=== PATIENT | male | born 1945 | race Caucasian/White ===

== ENCOUNTER 2019-06-29 05:52 | Day surgery (SDC) | payer OTHER ==
[2019-06-28 14:03] VITALS: BMI 31.1
[2019-06-29 06:38] LABS: Hemoglobin 16.2 g/dL (14.0-18.0); Mean Corpuscular HGB CONC 33.2 g/dL (32.0-36.0); Mean Corpuscular Hemoglobin 31.2 pg (27.0-31.0); Mean Corpuscular Volume 93.9 fL (78.0-98.0); Mean Platelet Volume 8.4 fL (7.4-10.4); Platelet Count 147 thou/uL (130-400); RBC Distribution Width 12.1 % (11.5-14.5); Red Blood Cell (RBC) Count 5.19 mill/uL (4.70-6.10); White Blood Cell (WBC) Count 4.8 thou/uL (4.8-10.8)
[2019-06-29 06:39] LABS: INR-International Normal Ratio 1.1; Prothrombin Time 14.1 SEC (12.0-14.7)
[2019-06-29] MEDS ORDERED: Thrombin 5000 UNITS/5 ML VIAL ONE (06:41)
[2019-06-29 06:53] LABS: Anion Gap 14 mmol/L (10-20); BUN (Urea Nitrogen) 24 mg/dL (8.4-25.7); Calc. Creatinine Clearance 53 mL/min (70-130); Calcium 9.6 mg/dL (7.8-10.44); Carbon Dioxide 25 mmol/L (23-31); Chloride 105 mmol/L (98-107); Estimated GFR-MDRD 41; Glucose 98 mg/dL (83-110); Potassium 4.6 mmol/L (3.5-5.1); Sodium 139 mmol/L (136-145)
[2019-06-29] MEDS ORDERED: Fentanyl 100 MCG/2 ML VIAL ONE (06:59)
[2019-06-29] MEDS ORDERED: Phenylephrine 10 MG/ML VIAL ONE (08:44)
[2019-06-29] MEDS ORDERED: PROPOFOL 200 MG/20 ML VIAL ONE (09:20)
[2019-06-29] MEDS ORDERED: Rocuronium Bromide 10 MG/ML (10ML VIAL) ONE (09:20)
[2019-06-29] MEDS ORDERED: EPHEDRINE 25 MG/5 ML SYRINGE ONE (09:20)
[2019-06-29] MEDS ORDERED: Ondansetron PF 4 MG/2 ML Vial ONE (09:20)
[2019-06-29] MEDS ORDERED: Dexamethasone 20 MG/5 ML VIAL ONE (09:20)
[2019-06-29] MEDS ORDERED: PHENYLEPHRINE-NS 100 MCG/ML 10 ML SYRINGE ONE (09:20)
--- NOTE | 2019-06-29 10:06 | PRG ---
DATE OF SERVICE: 06/29/2019 SUBJECTIVE: I spoke with Mr. Mcfarland on the phone. He has been having increasing leg weakness and difficulties with his knees buckling, worse again over the last 2 months now with low back and bilateral leg pain. It has gotten to the point where he is concerned about his ability to walk. As such, I reviewed his new MRI. 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 At the L4-L5 segment on the right side, he has a disk extrusion that is more in the lateral region compressing the exiting left L4 nerve root and I suspect his bilateral L4 and traversing left L5 compression are the culprit of his symptoms, in particular his bilateral L4 radiculopathy. I have let him know if he only had low back and leg pain, ideally we would wait for this to be elective, although I am concerned with his recent risk of falls as he is on aspirin as well. I have discussed this with him and I have recommended that this be done before the 30-day period and he was in agreement. The surgery that I have recommended initially before talking with the patient was bilateral L3-L4 revision hemilaminotomies and foraminotomies with right L3-L4 revision diskectomy with left L4-L5 revision hemilaminotomy and foraminotomy. However, in talking with the patient, I am concerned about the complete traverse of his left L4 nerve root, and as such, I will add to this a left L4-L5 trans facet diskectomy to maximize the exiting left L4 nerve root in its foramen. The goals, indications, risks, alternatives, and complications of all of this were discussed in detail with the patient and he wishes to proceed. Job ID: [id number]
[2019-06-29] MEDS ORDERED: Acetaminophen 325 MG TAB PO PRN (10:19)
[2019-06-29] MEDS ORDERED: Bisacodyl 10 MG SUPP PR PRN (10:19)
[2019-06-29] MEDS ORDERED: tiZANidine HCl 4 MG TAB PO PRN (10:19)
[2019-06-29] MEDS ORDERED: Milk Of Magnesia 30 ML UDCUP PO PRN (10:19)
[2019-06-29] MEDS ORDERED: HYDROcodone/Acetaminophen 7.5/325 mg Tablet PO PRN (10:19)
[2019-06-29] MEDS ORDERED: traMADol HCl 50 MG TAB PO PRN (10:19)
[2019-06-29] MEDS ORDERED: Mag-Al 1200 mg/1200 mg/30 ML UDCUP PO PRN (10:19)
[2019-06-29] MEDS ORDERED: Ondansetron PF 4 MG/2 ML Vial IVP PRN (10:19)
[2019-06-29] MEDS ORDERED: Morphine 2 MG/ML SYRINGE SLOW IVP PRN (10:19)
[2019-06-29] MEDS ORDERED: Fleet Enema 133 ML BOT PR PRN (10:19)
[2019-06-29] MEDS ORDERED: Acetaminophen/Codeine 30-300mg Tablet PO PRN (10:19)
[2019-06-29] MEDS ORDERED: Nitroglycerin 0.4 MG TAB (25 Tab Bottle) SL PRN (10:44)
[2019-06-29] MEDS: Sodium Chloride 0.9% 1,000 ML IV SCH ×2 (12:01→23:21)
--- NOTE | 2019-06-29 12:22 | OP ---
DATE OF PROCEDURE: 06/29/2019 INDICATIONS FOR PROCEDURE: This is considered as an urgent case and not elective as the patient in addition to his longstanding low back and leg pain is starting to have leg weakness and his legs were giving out when he ambulated. I recommended because of that, that we proceed in a nonelective fashion. I discussed with him the coronavirus acquisition risk. PREPROCEDURE DIAGNOSES: Low back and left greater than right leg pain with leg weakness and buckling of the legs with lumbar radiculopathy. POSTPROCEDURE DIAGNOSES: Low back and left greater than right leg pain with leg weakness and buckling of the legs with lumbar radiculopathy. PROCEDURES PERFORMED: 1. Bilateral revision L3-L4 hemilaminotomy, foraminotomy with right L3-L4 diskectomy, modifier 50 should be added to this as this is a bilateral procedure. 2. Left L4-L5 revision hemilaminotomy, foraminotomy for decompression of left L5 nerve root. 3. Use of operative microscope for microdissection. 4. Left L4-L5 trans-facet diskectomy for decompression of the exiting left L4 nerve root and removal foraminal disk extrusion. SERVICE CENTER COORDINATOR: Earline Ortega PA-C DESCRIPTION OF PROCEDURE: After informed consent was obtained from the patient, the patient was brought to the OR. Proper patient, pause, and identification were carried out. He was placed under excellent general endotracheal anesthesia and positioned prone on the OR table. All appropriate points were padded. A linear annabel was identified from his prior surgery and this region was sterilely cleansed, prepared and draped. Proper patient, pause, and identification were carried out. The wound was then opened with a combination of sharp, monopolar, and blunt dissection. We proceeded to identify the bilateral facet complexes and what was left of the lamina at L3-L4 and L4-L5 bilaterally. Localization film confirmed our area of interest. We then performed a bilateral L3-L4 revision hemilaminotomy and foraminotomies and left L4-L5 revision hemilaminotomy, foraminotomy. We then brought the microscope in and a trans-facet diskectomy at the left L4-L5 segment was performed and skeletonization of the left L4 nerve root via left L4-L5 trans-facet was performed and a left L4-L5 trans-facet diskectomy performed with decompression of the exiting left L4 nerve root. We then turned our attention to the standard diskectomy on the right side of the L3-L4 segment. In a paracentral fashion, the disk material was removed to decompress the traversing right L4 nerve root. Copious irrigation occurred throughout as we maximized hemostasis. The wound was copiously irrigated and closed in anatomic layers following sprinkling of vancomycin powder. There was no spinal fluid. Job ID: [id number]
--- NOTE | 2019-06-29 16:11 | EKG ---
Test Reason : PREOP Blood Pressure : / mmHG Vent. Rate : 051 BPM Atrial Rate : 051 BPM P-R Int : 274 ms QRS Dur : 100 ms QT Int : 470 ms P-R-T Axes : 067 -01 018 degrees QTc Int : 433 ms Sinus bradycardia with 1st degree A-V block Non-specific intra-ventricular conduction delay Inferior infarct , age undetermined Abnormal ECG Confirmed by CATRACHITA HOLBROOK ([id number]) on 06/29/2019 4:11:32 PM Referred By: JOVANNY Confirmed By:CATRACHITA HOLBROOK
[2019-06-29] MEDS: CEFAZOLIN 2 GM in Premix Bag 1 BAG IVPB SCH ×2 (17:04→23:04)
[2019-06-29] MEDS: metFORMIN 500 MG TAB PO SCH (17:12)
[2019-06-29] MEDS: glipiZIDE 10 MG TAB PO SCH (17:17)
[2019-06-29] MEDS: Gabapentin 300 MG CAP PO SCH (20:15)
[2019-06-29] MEDS: HumaLOG 300 UNITS/3 ML VIAL SC SCH (20:57)
[2019-06-29] MEDS ORDERED: Atorvastatin Calcium 40 MG TAB PO SCH (21:00)
[2019-06-29] MEDS ORDERED: Ubidecarenone 50 MG CAP PO SCH (21:00)
[2019-06-29] MEDS ORDERED: Allopurinol 100 MG TAB PO SCH (21:00)
[2019-06-30] MEDS: HumaLOG 300 UNITS/3 ML VIAL SC SCH (06:40)
[2019-06-30] MEDS: glipiZIDE 10 MG TAB PO SCH (06:41)
[2019-06-30] MEDS ORDERED: Pioglitazone HCl 15 MG TAB PO SCH (09:00)
[2019-06-30] MEDS: metFORMIN 500 MG TAB PO SCH (09:00)
[2019-06-30] MEDS: Gabapentin 300 MG CAP PO SCH (09:00)
[2019-06-30] MEDS ORDERED: Multivitamin W/ Minerals 1 TAB PO SCH (09:00)
[2019-06-30] MEDS ORDERED: Lisinopril 20 MG TAB PO SCH (09:00)
[2019-06-30] MEDS ORDERED: Isosorbide Mononitrate (ER) 30 MG TAB PO SCH (09:00)
[2019-06-30] MEDS ORDERED: Magnesium Oxide 400 MG TAB PO SCH (09:00)
--- NOTE | 2019-06-30 10:26 | PRG ---
DATE OF SERVICE: 06/30/2019 Mr. Mcfarland is postoperative day 1 from lumbar diskectomy, revision continued buckling of the knees, leg pain and leg weakness. He states he feels significantly better with resolution in his leg pain. He is ambulated this morning with a rolling walker and states he even feels as if he does not need the walker and that his legs have not buckled since before surgery. He is very pleased. He has had some sanguinous ooze from his wound, although nothing active this morning. We did operate on him with aspirin in his system given his history of ischemic cardiomyopathy and prior bypass surgery, and I suspect this is part of the issue. He also has a revision wound, which are notorious for postoperative drainage. Nevertheless, he is neurologically intact and doing well. We went over do's and don'ts in the postoperative period and he will be dismissed. Job ID: [id number]
[2019-06-30 11:34] VITALS: BP 161/69; TEMP 98.4
== END 2019-06-30 12:25 | disposition home or self-care (01) ==
LOC: SDC 05:52 → SURG A 11:22 → SDC 06-30 12:25
PROVIDERS: ATTEND Surgery
PROC: 01NB0ZZ Release Lumbar Nerve, Open Approach (ICD-10-PCS; principal; 2019-06-30)
DX: M48.061 Spinal stenosis, lumbar region without neurogenic claudication (principal); M51.16 Intervertebral disc disorders with radiculopathy, lumbar region; G47.33 Obstructive sleep apnea (adult) (pediatric); I10 Essential (primary) hypertension; I25.10 Atherosclerotic heart disease of native coronary artery without angina pectoris; E78.5 Hyperlipidemia, unspecified; E11.9 Type 2 diabetes mellitus without complications; K21.9 Gastro-esophageal reflux disease without esophagitis; Z79.82 Long term (current) use of aspirin; Z79.84 Long term (current) use of oral hypoglycemic drugs; Z79.899 Other long term (current) drug therapy; Z95.1 Presence of aortocoronary bypass graft
CPT/HCPCS: 36416; 76000; 80048; 85027; 85610; 85730; 93005; 93010; J0690; J1100; J2370; J2405; J2704; J3010; J3370

== ENCOUNTER 2020-12-27 14:55 | Inpatient (IN) | payer OTHER ==
[2020-12-27 15:55] VITALS: BMI 30.9
[2020-12-27] MEDS ORDERED: traMADol HCl 50 MG TAB PO PRN (16:42)
[2020-12-27] MEDS ORDERED: tiZANidine HCl 4 MG TAB PO PRN (16:42)
[2020-12-27] MEDS ORDERED: oxyCODONE 5 MG TAB PO PRN (16:44)
[2020-12-27] MEDS: Sodium Chloride 0.9% 1,000 ML IV SCH (18:32)
[2020-12-27 18:42] LABS: SARS-CoV-2 NAA Rapid Test Not Detected (NotDetected)
[2020-12-27] MEDS: Ibuprofen 800 MG TAB PO PRN (20:28)
[2020-12-28 06:03] LABS: #Eosinphils 0.3 thou/uL (0.0-0.7); #Lymphocytes 1.3 thou/uL (1.20-3.40); #Monocytes 0.4 thou/uL (0.11-0.59); #Neutrophils 1.7 thou/uL (1.40-6.50); %Basophils 1.1 % (0.0-1.0); %Eosinophils 8.5 % (0.0-10.0); %Lymphocytes 34.1 % (21.0-51.0); %Monocytes 11.5 % (0.0-10.0); %Neutrophils 44.8 % (42.0-75.0); Hemoglobin 13.2 g/dL (14.0-18.0); Mean Corpuscular HGB CONC 32.6 g/dL (32.0-36.0); Mean Corpuscular Hemoglobin 31.4 pg (27.0-31.0); Mean Corpuscular Volume 96.5 fL (78.0-98.0); Mean Platelet Volume 7.9 fL (7.4-10.4); Platelet Count 134 thou/uL (130-400); RBC Distribution Width 12.2 % (11.5-14.5); Red Blood Cell (RBC) Count 4.19 mill/uL (4.70-6.10); White Blood Cell (WBC) Count 3.8 thou/uL (4.8-10.8)
[2020-12-28 06:15] LABS: INR-International Normal Ratio 1.2; Prothrombin Time 14.9 sec (12.0-14.7)
[2020-12-28 06:16] LABS: PTT 32.6 sec (22.9-36.1)
[2020-12-28] MEDS: Sodium Chloride 0.9% 1,000 ML IV SCH (06:22)
[2020-12-28 06:40] LABS: Anion Gap 13 mmol/L (10-20); BUN (Urea Nitrogen) 32 mg/dL (8.4-25.7); Calc. Creatinine Clearance 44 mL/min (70-130); Calcium 8.8 mg/dL (7.8-10.44); Carbon Dioxide 21 mmol/L (23-31); Chloride 110 mmol/L (98-107); Glucose 102 mg/dL (83-110); Potassium 4.7 mmol/L (3.5-5.1); Sodium 139 mmol/L (136-145)
[2020-12-28] MEDS ORDERED: Thrombin 5000 UNITS/5 ML VIAL ONE (10:27)
[2020-12-28] MEDS ORDERED: ceFAZolin 2 GM/DEX 5% 100 ML BAG ONE (10:54)
[2020-12-28] MEDS ORDERED: Fentanyl 100 MCG/2 ML VIAL ONE ×2 (11:23→12:58)
[2020-12-28] MEDS ORDERED: Dexmedetomidine 200 MCG/2 ML VIAL ONE (11:23)
[2020-12-28] MEDS ORDERED: ePHEDrine 50 MG/ML VIAL ONE (11:35)
[2020-12-28] MEDS ORDERED: Rocuronium Bromide 10 MG/ML (10ML VIAL) ONE (11:35)
[2020-12-28] MEDS ORDERED: PHENYLEPHRINE-NS 100 MCG/ML 10 ML SYRINGE ONE (11:35)
[2020-12-28] MEDS ORDERED: Glycopyrrolate 0.2 MG/ML 5 ML SYRINGE ONE (11:35)
[2020-12-28] MEDS ORDERED: Ondansetron PF 4 MG/2 ML Vial ONE (11:35)
[2020-12-28] MEDS ORDERED: PROPOFOL 200 MG/20 ML VIAL ONE (11:35)
[2020-12-28] MEDS ORDERED: Dexamethasone 20 MG/5 ML VIAL ONE (11:35)
[2020-12-28] MEDS ORDERED: Lidocaine 1% PF 5 ML VIAL ONE (11:35)
[2020-12-28] MEDS ORDERED: SUGAMMADEX SODIUM 200 MG/2 ML VIAL ONE (13:40)
[2020-12-28] MEDS ORDERED: NITROGLYCERIN 0.3 MG PO PRN (14:23)
[2020-12-28] MEDS ORDERED: Promethazine HCl 25 MG/ML VIAL IVPB PRN (14:24)
[2020-12-28] MEDS ORDERED: Ondansetron HCl/PF 4 MG/2 ML Vial IVP PRN (14:24)
[2020-12-28] MEDS ORDERED: Promethazine HCl 25 MG/ML VIAL IM PRN (14:24)
[2020-12-28] MEDS ORDERED: hydrALAZINE 20 MG/ML VIAL SLOW IVP PRN (14:25)
[2020-12-28] MEDS ORDERED: Morphine 4 MG/ML VIAL SLOW IVP PRN (15:40)
[2020-12-28] MEDS ORDERED: Diclofenac 1% 100 GM GEL TP PRN (15:53)
[2020-12-28] MEDS ORDERED: UBIDECARENONE 30 MG PO SCH (21:00)
[2020-12-28] MEDS: Lisinopril 20 MG TAB PO SCH (21:06)
[2020-12-28] MEDS: Allopurinol 100 MG TAB PO SCH (21:06)
[2020-12-28] MEDS: Atorvastatin Calcium 40 MG TAB PO SCH (21:06)
[2020-12-28] MEDS: Gabapentin 300 MG CAP PO SCH (21:06)
[2020-12-29] MEDS: Sodium Chloride 0.9% 1,000 ML IV SCH ×3 (01:14→20:24)
[2020-12-29] MEDS ORDERED: Dextrose 50% Abboject 50 ML SYRINGE IVP PRN (05:00)
[2020-12-29] MEDS ORDERED: Insulin Regular 300 UNITS/3 ML VIAL SC PRN (05:00)
[2020-12-29] MEDS ORDERED: Dextrose 5% in Water 1,000 ML IV PRN (05:00)
[2020-12-29 05:55] LABS: #Lymphocytes 0.7 thou/uL (1.20-3.40); #Monocytes 0.5 thou/uL (0.11-0.59); #Neutrophils 7.3 thou/uL (1.40-6.50); %Basophils 0.2 % (0.0-1.0); %Eosinophils 0.1 % (0.0-10.0); %Lymphocytes 7.9 % (21.0-51.0); %Neutrophils 85.9 % (42.0-75.0); Hemoglobin 13.8 g/dL (14.0-18.0); Mean Corpuscular Hemoglobin 31.6 pg (27.0-31.0); Mean Corpuscular Volume 95.8 fL (78.0-98.0); Mean Platelet Volume 8.2 fL (7.4-10.4); Platelet Count 156 thou/uL (130-400); RBC Distribution Width 12.2 % (11.5-14.5); Red Blood Cell (RBC) Count 4.37 mill/uL (4.70-6.10); White Blood Cell (WBC) Count 8.5 thou/uL (4.8-10.8)
[2020-12-29 06:12] LABS: Anion Gap 15 mmol/L (10-20); BUN (Urea Nitrogen) 33 mg/dL (8.4-25.7); Calc. Creatinine Clearance 42 mL/min (70-130); Calcium 9.2 mg/dL (7.8-10.44); Carbon Dioxide 19 mmol/L (23-31); Chloride 110 mmol/L (98-107); Glucose 174 mg/dL (83-110); Potassium 5.2 mmol/L (3.5-5.1); Sodium 139 mmol/L (136-145)
[2020-12-29] MEDS ORDERED: Promethazine HCl 12.5 MG in Sodium Chloride 0.9% 50 ML IVPB PRN (07:08)
[2020-12-29] MEDS ORDERED: Ondansetron PF 4 MG/2 ML Vial IVP PRN (07:08)
[2020-12-29] MEDS ORDERED: glipiZIDE 10 MG TAB PO SCH (08:00)
[2020-12-29] MEDS: Pioglitazone HCl 15 MG TAB PO SCH (08:45)
[2020-12-29] MEDS: Gabapentin 300 MG CAP PO SCH ×2 (08:45→20:10)
[2020-12-29] MEDS: Cholecalciferol 1,000 UNITS (25 MCG) TAB PO SCH (08:46)
[2020-12-29] MEDS: Lisinopril 20 MG TAB PO SCH ×2 (08:47→20:09)
[2020-12-29] MEDS: Magnesium Oxide 400 MG TAB PO SCH (08:47)
[2020-12-29] MEDS ORDERED: glipiZIDE 5 MG TAB PO SCH (10:00)
[2020-12-29] MEDS: Atorvastatin Calcium 40 MG TAB PO SCH (20:09)
[2020-12-29] MEDS: Allopurinol 100 MG TAB PO SCH (20:09)
[2020-12-29] MEDS: Ibuprofen 800 MG TAB PO PRN (20:16)
[2020-12-30] MEDS: Pioglitazone HCl 15 MG TAB PO SCH (09:11)
[2020-12-30] MEDS: Cholecalciferol 1,000 UNITS (25 MCG) TAB PO SCH (09:12)
[2020-12-30] MEDS: Magnesium Oxide 400 MG TAB PO SCH (09:12)
[2020-12-30] MEDS: Gabapentin 300 MG CAP PO SCH ×2 (09:12→21:39)
[2020-12-30] MEDS: glipiZIDE 5 MG TAB PO SCH (09:13)
[2020-12-30] MEDS: Lisinopril 20 MG TAB PO SCH ×2 (09:14→21:39)
[2020-12-30] MEDS: Sodium Chloride 0.9% 1,000 ML IV SCH ×2 (09:52→22:28)
[2020-12-30] MEDS: Atorvastatin Calcium 40 MG TAB PO SCH (21:38)
[2020-12-30] MEDS: Allopurinol 100 MG TAB PO SCH (21:39)
[2020-12-30] MEDS: Ibuprofen 800 MG TAB PO PRN (21:39)
[2020-12-31 03:43] VITALS: TEMP 97.8
[2020-12-31] MEDS: Pioglitazone HCl 15 MG TAB PO SCH (09:14)
[2020-12-31] MEDS: glipiZIDE 5 MG TAB PO SCH (09:15)
[2020-12-31] MEDS: Magnesium Oxide 400 MG TAB PO SCH (09:15)
[2020-12-31] MEDS: Cholecalciferol 1,000 UNITS (25 MCG) TAB PO SCH (09:15)
[2020-12-31] MEDS: Gabapentin 300 MG CAP PO SCH (09:16)
[2020-12-31 12:01] VITALS: BP 144/69
[2020-12-31] MEDS: Lisinopril 20 MG TAB PO SCH (12:01)
[2021-01-09] MEDS ORDERED: Non-Formulary Item 1 EACH (Semaglutide [Ozempic] 1 MG/0.75 ML Pen.Injctr) SC SCH (09:00)
== END 2020-12-31 11:29 | disposition home or self-care (01) | DRG 520 ==
LOC: INTOOBSV 14:55 → SJJU 14:55 → OBSVTOIN 16:42
PROVIDERS: ADMIT Surgery; ATTEND Surgery
PROC: 0SB20ZZ Excision of Lumbar Vertebral Disc, Open Approach (ICD-10-PCS; principal; 2020-12-28)
PROC: 01NB0ZZ Release Lumbar Nerve, Open Approach (ICD-10-PCS; 2020-12-28)
DX: M48.061 Spinal stenosis, lumbar region without neurogenic claudication (principal); Z20.822 Contact with and (suspected) exposure to COVID-19; R29.6 Repeated falls; M51.16 Intervertebral disc disorders with radiculopathy, lumbar region; I12.9 Hypertensive chronic kidney disease with stage 1 through stage 4 chronic kidney disease, or unspecified chronic kidney disease; E11.22 Type 2 diabetes mellitus with diabetic chronic kidney disease; N18.9 Chronic kidney disease, unspecified; R33.9 Retention of urine, unspecified; G47.33 Obstructive sleep apnea (adult) (pediatric); Z86.718 Personal history of other venous thrombosis and embolism; Z88.6 Allergy status to analgesic agent; Z95.1 Presence of aortocoronary bypass graft; I25.2 Old myocardial infarction; Z87.442 Personal history of urinary calculi; Z79.84 Long term (current) use of oral hypoglycemic drugs; Z79.899 Other long term (current) drug therapy; Z79.82 Long term (current) use of aspirin; Z88.8 Allergy status to other drugs, medicaments and biological substances
CPT/HCPCS: 36415; 36416; 80048; 85025; 85610; 85730; 93005; 93010; J1100; J2405; J2704; J3010; J3370; J3490; J7050; U0002

== ENCOUNTER 2021-05-06 14:01 | Outpatient (CLI) | payer OTHER | END 2021-05-06 14:02 | disposition home or self-care (01) | LOC: TBSIIMAG 14:01 | PROVIDERS: ATTEND Surgery | DX: M48.062 Spinal stenosis, lumbar region with neurogenic claudication (principal); M51.36 Other intervertebral disc degeneration, lumbar region; M47.816 Spondylosis without myelopathy or radiculopathy, lumbar region; M47.817 Spondylosis without myelopathy or radiculopathy, lumbosacral region; Z98.890 Other specified postprocedural states | CPT/HCPCS: 72148 ==